=== PATIENT | female | born 1985 | race Caucasian/White ===

== ENCOUNTER 2016-07-24 10:12 | Outpatient (CLI) | payer OTHER ==
--- NOTE | 2016-07-24 12:33 | Ultrasound Report ---
BILATERAL DIGITAL DIAGNOSTIC MAMMOGRAM with CAD and LEFT BREAST ULTRASOUND: 07/24/16 10:12:00 CLINICAL: Left palpable lump and a sticky milky left nipple discharge. COMPARISON:None. FINDINGS: The breasts are heterogeneously dense, which may obscure small masses.Segmental retroareolar asymmetry in the left breast correlates with the palpable finding. No distinct mass or architectural distortion. No suspicious calcifications. The right breast is negative in I. Ultrasound of the left breast demonstrated numerous markedly dilated retroareolar ducts. The largest measure approximately 6 mm. Some of the ducts are anechoic and some contain very echogenic material. Color Doppler demonstrates no abnormal blood flow in or around the ducts. No intraductal mass is identified. There is a palpable fullness in the area but no distinct palpable mass. The patient described having had a milky discharge for a couple of weeks but she could not express any fluid from the nipple at the time of the exam. She describes no tenderness or pain. 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 BI-RADS CATEGORY: 3 - - Probably Benign RECOMMENDATION: Consultation with a breast surgeon and a short-term followup ultrasound of the left breast in three months if no surgical procedure is performed. ACR BI-RADS MAMMOGRAPHIC CODES: 0 = Needs additional imaging evaluation; 1 = Negative; 2 = Benign; 3 = Probably benign; 4 = Suspicious; 5 = Malignant; 6 = Known biopsy-proven malignancy COMMENT: 1. Dense breast tissue, i.e., adenosis, fibrocystic changes, etc., may obscure an underlying neoplasm. 2. Approximately 10% of cancers are not detected with mammography. 3. A negative mammography report should not delay biopsy if a clinically suspicious mass is present. COMMENT: Patient follow-up letters are generated by our [employer] application.
== END 2016-07-24 10:13 | disposition home or self-care (01) ==
LOC: SPVWC 10:12
PROVIDERS: ATTEND Internal Medicine Endocrinology, Diabetes & Metabolism
DX: N60.42 Mammary duct ectasia of left breast (principal); N63 Unspecified lump in breast; N64.52 Nipple discharge
CPT/HCPCS: 76642; G0204; 77066

== ENCOUNTER 2016-10-15 15:14 | Outpatient (CLI) | payer OTHER ==
--- NOTE | 2016-10-15 16:04 | Ultrasound Report ---
Sonogram left breast: Followup 3 months since prior study. Findings: Several dilated retroareolar ducts are noted. The largest measures 1.7 cm in length and 0.7 Cm in width. There is several echogenic areas are identified within the dilated ducts. This probably represents debris. No distinct mass is identified. No internal color flow is noted. Impression: Duct ectasia with debris within the lumen. No distinct mass identified. Probably benign. Malignancy cannot be excluded. Aspiration/biopsy is recommended. BI-RADS CATEGORY: 4 ACR BI-RADS MAMMOGRAPHIC CODES: 0 = Needs additional imaging evaluation; 1 = Negative; 2 = Benign; 3 = Probably benign; 4 = Suspicious; 5 = Malignant; 6 = Known biopsy-proven malignancy COMMENT: 1. Dense breast tissue, i.e., adenosis, fibrocystic changes, etc., may obscure an underlying neoplasm. 2. Approximately 10% of cancers are not detected with mammography. 3. A negative mammography report should not delay biopsy if a clinically suspicious mass is present.
== END 2016-10-15 15:15 | disposition home or self-care (01) ==
LOC: SPVWC 15:14
PROVIDERS: ATTEND Surgery
DX: N60.32 Fibrosclerosis of left breast (principal); N60.31 Fibrosclerosis of right breast; N60.42 Mammary duct ectasia of left breast; N64.52 Nipple discharge

== ENCOUNTER 2016-10-25 08:48 | Outpatient (CLI) | payer OTHER ==
--- NOTE | 2016-10-25 10:18 | Ultrasound Report ---
VACUUM ASSISTED ULTRASOUND GUIDED NEEDLE CORE BIOPSY WITH CLIP PLACEMENT LEFT BREAST: 10/25/16 08:48:00 CLINICAL: Duct ectasia and milky nipple discharge. Intraductal masses versus secretions. COMPARISON :10/15/16 FINDINGS: The procedure was explained to the patient and informed consent was obtained. Ultrasound demonstrated previously described marked retroareolar duct ectasia with echogenic debris versus intraductal masses. The skin was prepped with Betadine and anesthetized with 1% lidocaine. Vacuum-assisted needle core biopsy was performed through a small dermatotomy using ultrasound guidance, 2% lidocaine with epinephrine for deep anesthesia and a 13-gauge Mammotome Elite biopsy probe. Multiple cores were obtained from multiple ducts and placed in formalin. An 11-gauge Mammostar barbell shape clip was deployed at the site. Hemostasis was achieved with minimal pressure and a sterile dressing was applied. The patient tolerated the procedure well and there were no apparent complications. A two view mammogram demonstrated concordant clip placement. The patient left the department in good condition with instructions for wound care and follow up. IMPRESSION: Uncomplicated vacuum-assisted ultrasound core biopsy and clip placement left breast.
--- NOTE | 2016-10-25 10:19 | Mammography Report ---
LEFT DIGITAL DIAGNOSTIC MAMMOGRAM: 10/25/16 08:48:00 CLINICAL: For clip placement immediately status post ultrasound biopsy. COMPARISON:10/15/16 FINDINGS: A periareolar biopsy clip identified and correlates with the site of biopsy. IMPRESSION: Concordant clip placement status post ultrasound biopsy. BI-RADS CATEGORY: 4--Suspicious Pathology pending.
== END 2016-10-25 08:49 | disposition home or self-care (01) ==
LOC: SPVWC 08:48
PROVIDERS: ATTEND Surgery
DX: N60.42 Mammary duct ectasia of left breast (principal); N64.52 Nipple discharge
CPT/HCPCS: 19083; 88305; A4648; G0206

== ENCOUNTER 2016-10-29 12:19 | Outpatient (CLI) | payer OTHER | END 2016-10-29 12:20 | disposition home or self-care (01) | LOC: LAB 12:19 | PROVIDERS: ATTEND Surgery | DX: E22.1 Hyperprolactinemia (principal) | CPT/HCPCS: 36415; 84146 ==